=== PATIENT | male | born 1960 | race Caucasian/White ===

== ENCOUNTER → 2016-10-20 | Outpatient (CLI) | payer BC ==
[~2016-10-20] MED LIST: HYDC25 PO; LISI-461 PO; OMEP20CA9 PO; URX/10 PO
[2016-10-20 10:50] LABS: BLOOD UREA NITROGEN 18 mg/dl (7-18); BUN/CREATININE RATIO 14.8 (10-20)
== END | disposition home or self-care (01) ==
LOC: C.LAB1850 09:32
PROVIDERS: ATTEND Urology
DX: C67.9 Malignant neoplasm of bladder, unspecified (principal); N39.0 Urinary tract infection, site not specified; N41.9 Inflammatory disease of prostate, unspecified; R39.15 Urgency of urination; R97.20 Elevated prostate specific antigen [PSA]

== ENCOUNTER → 2016-11-30 | Outpatient (CLI) | payer BC ==
[~2016-11-30] MED LIST changes: +OPTIRAY 300 IV PRN
--- NOTE | 2016-11-30 14:26 | DIAGNOSTIC IMAGING REPORT ---
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 FINDINGS: [employer] film demonstrates no definite urolithiasis. 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 Bowel gas pattern is nonobstructive. Patient was subsequently injected with 100 mL Optiray 320. The 1 minute scan demonstrates prompt nephrograms which appear symmetric, left partially obscured by bowel gas. Right kidney measuring 11.8 cm and the left kidney measuring 13.5 cm. There is prompt symmetric excretion of contrast bilaterally. No duplicated renal collecting systems identified. No focal filling defects or collecting system dilation identified. There is focal narrowing of the distal left ureter at the level the mid sacral ala which appears unchanged from comparison without significant proximal dilation. This is nicely seen on image 9 of 14. No focal bladder abnormalities are identified. IMPRESSION: 1. Focal luminal narrowing involving the distal left ureter at the level of the mid sacral ala is again seen which is unchanged from comparison without focal proximal dilation. This may be physiologic or reflect a small focal stricture. This could be correlated with ureteroscopy. 2. The remainder of the study is within normal limits. The above report was generated using voice recognition software. It may contain grammatical, syntax or spelling errors. Electronically signed by: Lele Díaz M.D. 11/30/2016 2:24 PM Dictated Date/Time: 11/30/2016 2:17 PM
== END | disposition home or self-care (01) ==
LOC: C.RAD 12:38
PROVIDERS: ATTEND Urology
DX: C67.9 Malignant neoplasm of bladder, unspecified (principal); R39.15 Urgency of urination